=== PATIENT | female | born 1995 | race Caucasian/White ===

== ENCOUNTER 2025-04-06 10:52 | Emergency (ER) | payer OTHER ==
[~2025-04-06] VITALS: Ht 154.9 cm; Wt 64.0 kg
[2025-04-06 10:59] VITALS: O2SAT 100
[2025-04-06 11:36] LABS: BASOPHILS % 1.0 % (0.0-2.0); EOSINOPHILS % 1.0 % (0.0-5.0); HEMATOCRIT. 41.4 % (36.0-48.0); HEMOGLOBIN. 13.4 g/dL (12.0-16.0); LYMPHOCYTES % 27.3 % (20.0-50.0); MEAN PLATELET VOLUME 9.1 fl (7.4-10.4); MONOCYTES % 6.8 % (2.0-8.0); NEUTROPHILS % 63.9 % (40.0-76.0); PLATELET 225 x1000/uL (130-400); RED BLOOD CELL COUNT 5.15 mill/uL (4.2-5.4); RED CELL DISTRIBUTION WIDTH 13.7 % (11.6-14.6)
[2025-04-06] MEDS: LACTATED RINGERS 1,000 ML IV SCH (11:59)
[2025-04-06 12:19] LABS: CREATININE 0.9 mg/dL (0.6-1.0)
[2025-04-06 12:20] LABS: UREA NITROGEN BLOOD 15 mg/dL (9-23)
[2025-04-06 12:21] LABS: ASPARTATE AMINOTRANSFERASE 12 IU/L (<34); BILIRUBIN TOTAL 0.5 mg/dL (0.1-1.0)
[2025-04-06 12:22] LABS: PROTEIN TOTAL 7.7 g/dL (6.0-8.3)
[2025-04-06 12:24] LABS: HCG SCREEN NEGATIVE
[2025-04-06 12:50] VITALS: BP 118/79; PULSE 75; RESP 15; TEMP 37.3; O2SAT 100
== END 2025-04-06 12:57 | disposition home or self-care (01) ==
LOC: ER 10:52
DX: R55 Syncope and collapse (principal); R42 Dizziness and giddiness; R11.0 Nausea
CPT/HCPCS: 99284; 93880; 96360; 80053; 84703; 85025; 36415; 76604; 93005; J7120